=== PATIENT | male | born 1985 | race Hispanic/Latino ===

== ENCOUNTER → 2019-03-21 | Outpatient (CLI) | payer OTHER ==
--- NOTE | 2019-03-21 17:37 | Diagnostic Imaging Report ---
Abdominal ultrasound. History: Right upper quadrant pain Comparison: <None available>. Discussion: Transverse and longitudinal images of the abdomen were obtained demonstrating a liver of normal size with increased echogenicity measuring 12.0 cm in length. The portal vein is patent with hepatopetal flow and is within normal limits measuring 8 mm in diameter. The biliary tree is within normal limits with the common bile duct measuring 3 mm in diameter. The gallbladder is normal without evidence of stones, wall thickening or pericholecystic fluid. The sonographic Cornejo's sign was negative. The kidneys are normal in size and echogenicity bilaterally without evidence of hydronephrosis, stones, or mass. The right kidney measures 10.2 x 4.8 x 4.7 cm and the left kidney measures 12.2 x 6.0 x 4.8 cm. The spleen is normal in size and appearance measuring 12.0 x 3.2 x 4.2 cm. Limited evaluation of the pancreas and aorta due to overlying bowel gas. The IVC is patent. There is no evidence of free fluid. IMPRESSION: Increased echogenicity of the liver without focal mass. Signed by: Dr. Slade Herron DO on 03/21/2019 5:33 PM
== END ==
LOC: US 14:35
PROVIDERS: ATTEND Internal Medicine
DX: R10.11 Right upper quadrant pain (principal)
CPT/HCPCS: 76700

== ENCOUNTER 2020-12-07 17:29 | Emergency (ER) | payer OTHER ==
[~2020-12-07] VITALS: Ht 180.3 cm; Wt 86.2 kg
[2020-12-07] MEDS ORDERED: TETANUS/DIPHTHERIA TOX ADULT 0.5 ML SYR IM ONE (18:00)
[2020-12-07] MEDS ORDERED: BUPIVACAINE HCL 0.5% 10ML MPF VIAL INJ ONE (18:00)
[2020-12-07 20:31] VITALS: BP 120/72
== END 2020-12-07 20:36 | disposition home or self-care (01) ==
LOC: ER 18:26
DX: S61.411A Laceration without foreign body of right hand, initial encounter (principal); W26.0XXA Contact with knife, initial encounter; F17.210 Nicotine dependence, cigarettes, uncomplicated
CPT/HCPCS: 90714; 99283